=== PATIENT | female | born 1970 | race American Indian/Alaskan Native ===

== ENCOUNTER 2021-06-21 08:29 | Day surgery (SDC) | payer BC ==
--- NOTE | 2021-06-21 08:47 | EDM.PDOC ---
ED HPI GENERAL MEDICAL PROBLEM - General Chief Complaint: General Stated Complaint: coughing up blood Time Seen by Provider: 06/21/21 08:42 Source of Information: Reports: Patient History Limitations: Reports: No Limitations - History of Present Illness INITIAL COMMENTS - FREE TEXT/NARRATIVE: 51-year-old female who reports that she has been urinating frequently for about the past 3-4 days. She also reports this morning she awoke and at about 5:30 AM, she had vomiting that was rather forceful. It was not associated with any nausea but she did feel lightheaded and not well. She reports that there was multiple dry heaving and then she had about a tablespoon full of blood that was bright red and she had no further emesis but continued to fill lightheaded and dizzy. She dressed and went to work and the symptoms did not improve and, therefore, she came to the emergency department for evaluation. She has had no bowel movement today but did have a normal bowel movement yesterday with no evidence of blood. She denies any pain at present. She would rate her pain as a 0/10. She is continuing to feel somewhat lightheaded and this does seem to be worse when she stands. No fevers or chills. No dysuria. No cough. No shortness of breath. No chest pain. She is a diabetic and reports that she is taking metformin. She has not been checking her blood sugars and has not checked her blood sugar for some time. There are no other associated signs or symptoms. There are no other modifying factors. Onset: Other (Today with the throwing up blood times one. Urinating frequently for the past 4 days.) Duration: Constant Location: Reports: Other (No pain. Not applicable.) Quality: Reports: Other (Not applicable.) Improves with: Reports: Rest Worsens with: Reports: Other (Standing), Movement Context: Reports: Other (As above.) Associated Symptoms: Reports: No Other Symptoms (Except as above.) Treatments [employer]LE[employer]: Reports: Other (see below) - Related Data Allergies Allergy/AdvReac Type Severity Reaction Status Date / Time No Known Allergies Allergy Verified 06/21/21 08:47 Home Meds: Home Meds Omeprazole 40 mg PO ACBREAKFAST #30 cap.sr 06/21/21 [Rx] metFORMIN [Glucophage] 500 mg PO BIDMEALS #60 tab 06/21/21 [Rx] metFORMIN [Glucophage] 500 mg PO DAILY 06/21/21 [History] Past Medical History Endocrine/Metabolic History: Reports: Diabetes, Type II, Obesity/BMI 30+ - Past Surgical History Female Surgical History: Reports: Section Social & Family History - Tobacco Use Tobacco Use Status *Q: Unknown Ever Used Tobacco (Nonsmoker.) - Alcohol Use Alcohol Use History: Yes Alcohol Use Frequency: Rarely - Living Situation & Occupation Living situation: Reports: Occupation: Employed (Works at [employer]) ED ROS GENERAL - Review of Systems Review Of Systems: See Below Constitutional: Reports: Malaise, Weakness. Denies: Fever, Chills HEENT: Reports: Nosebleed (Has had some nosebleeds but did not have one this morning.). Denies: Throat Pain, Throat Swelling Respiratory: Denies: Shortness of Breath, Cough Cardiovascular: Denies: Chest Pain, Palpitations GI/Abdominal: Reports: Hematemesis, Vomiting. Denies: Nausea : Reports: Frequency. Denies: Dysuria, Flank Pain Musculoskeletal: Denies: Neck Pain, Back Pain Skin: Denies: Diaphoresis, Rash Neurological: Reports: Dizziness. Denies: Headache Hematologic/Lymphatic: Denies: Easy Bleeding, Easy Bruising ED EXAM, GENERAL - Physical Exam Exam: See Below Exam Limited By: No Limitations General Appearance: Alert, Mild Distress, Obese Eye Exam: Bilateral Eye: EOMI, Normal Inspection, PERRL Ears: Normal External Exam, Hearing Grossly Normal Ear Exam: Bilateral Ear: Auricle Normal Nose: Normal Inspection, Normal Mucosa, No Blood Throat/Mouth: Normal Voice, No Airway Compromise, Other (Dry mucous membranes.) Head: Atraumatic, Normocephalic Neck: Normal Inspection, Supple, Non-Tender, Full Range of Motion Respiratory/Chest: No Respiratory Distress, Lungs Clear, Normal Breath Sounds, No Accessory Muscle Use, Chest Non-Tender Cardiovascular: Normal Peripheral Pulses, No JVD, No Murmur, Tachycardia Peripheral Pulses: 2+: Radial (L), Radial (R), Dorsalis Pedis (L), Dorsalis Pedis (R) GI/Abdominal: Normal Bowel Sounds, Soft, No Mass, Tender (Mild diffuse tenderness.) Back Exam: Normal Inspection Extremities: Normal Inspection, Normal Range of Motion, Non-Tender, No Pedal Edema, Normal Capillary Refill Neurological: Alert, Oriented, CN II-XII Intact, Normal Cognition, No Motor/Sensory Deficits Psychiatric: Normal Affect Skin Exam: Warm, Dry, Intact, Normal Color, No Rash Course - Vital Signs Last Recorded V/S: Last Vital Signs Temp 36.7 C 06/21/21 10:21 Pulse 98 06/21/21 10:21 Resp 14 06/21/21 10:21 BP 147/86 H 06/21/21 10:21 Pulse Ox 93 L 06/21/21 10:21 Orthostatic Blood Pressure [ 150/92 Standing] Orthostatic Blood Pressure [ 129/91 Sitting] Orthostatic Blood Pressure [ 136/88 Supine] - Orders/Labs/Meds Orders: Active Orders 24 hr Category Date Time Status Orthostatic Vital Signs [RC] ONETIME Care 06/21/21 08:59 Active Sodium Chloride 0.9% [Saline Flush] Med 06/21/21 08:59 Active 10 ml FLUSH ASDIRECTED PRN Peripheral IV Insertion Adult [OM.PC] Routine Oth 06/21/21 08:59 Ordered Medication Orders Sodium Chloride (Sodium Chloride 0.9% 10 Ml Syringe) 10 ml FLUSH ASDIRECTED PRN PRN Reason: Keep Vein Open Last Admin: 06/21/21 09:26 Dose: 10 ml Documented by: MARTY Labs: Laboratory Tests 06/21/21 06/21/21 06/21/21 Range/Units 08:43 09:10 09:10 WBC 5.2 (3.0-10.3) x10-3/uL RBC 5.42 H (3.60-5.20) x10(6)uL Hgb 15.8 H (11.4-15.5) g/dL Hct 48.0 (34.2-48.2) % MCV 88.5 (76.7-100.5) fL MCH 29.2 (23.9-33.9) pg MCHC 32.9 (31.9-34.8) g/dL RDW 13.4 (12.3-16.5) % Plt Count 158 (151-488) x10(3)uL MPV 8.7 (7.1-12.4) fL Neut % (Auto) 64.2 (30.8-76.2) % Lymph % (Auto) 25.9 (18.4-52.1) % [place] % (Auto) 8.1 (4.4-15.7) % Eos % (Auto) 1.4 (0.6-8.1) % Baso % (Auto) 0.4 (0.2-1.5) % Neut # (Auto) 3.3 (1.5-6.3) x10-3/uL Lymph # (Auto) 1.3 (1.0-4.4) x10-3/uL [place] # (Auto) 0.4 (0.3-1.0) x10-3/uL Eos # (Auto) 0.1 (0.0-0.8) x10-3/uL Baso # (Auto) 0.0 (0.0-0.1) x10-3/uL Sodium 137 (135-145) mmol/L Potassium 3.8 (3.5-5.3) mmol/L Chloride 98 L (100-110) mmol/L Carbon Dioxide 25 (21-32) mmol/L BUN 13 (7-18) mg/dL Creatinine 1.4 H (0.55-1.02) mg/dL Est Cr Clr Drug Dosing 40.59 mL/min Estimated GFR (MDRD) 39 L (>60) BUN/Creatinine Ratio 9.3 (9-20) Glucose 467 H* (80-116) mg/dL POC Glucose 483 H* (80-116) mg/dL Calcium 9.1 (8.6-10.2) mg/dL Magnesium 1.9 (1.8-2.5) mg/dL Total Bilirubin 1.1 (0.1-1.3) mg/dL AST 41 H (5-25) IU/L ALT 35 (12-36) U/L Alkaline Phosphatase 220 H (56-112) IU/L Total Protein 8.7 H (6.0-8.0) g/dL Albumin 3.6 (3.5-5.2) g/dL Globulin 5.1 g/dL Albumin/Globulin Ratio 0.7 Urine Color (YELLOW) Urine Appearance (CLEAR) Urine pH (5.0-6.5) Ur Specific [place] (1.010-1.025) Urine Protein (NEGATIVE) mg/dL Urine Glucose (UA) (NORMAL) mg/dL Urine Ketones (NEGATIVE) mg/dL Urine Occult Blood (NEGATIVE) Urine Nitrite (NEGATIVE) Urine Bilirubin (NEGATIVE) Urine Urobilinogen (NEGATIVE) mg/dL Ur Leukocyte Esterase (NEGATIVE) Urine RBC (0-5) Urine WBC (0-5) Ur Squamous Epith Cells (NS,R,O) Urine Bacteria (NS) Blood Type Gel Antibody Screen 06/21/21 06/21/21 06/21/21 Range/Units 09:12 09:16 10:18 WBC (3.0-10.3) x10-3/uL RBC (3.60-5.20) x10(6)uL Hgb (11.4-15.5) g/dL Hct (34.2-48.2) % MCV (76.7-100.5) fL MCH (23.9-33.9) pg MCHC (31.9-34.8) g/dL RDW (12.3-16.5) % Plt Count (151-488) x10(3)uL MPV (7.1-12.4) fL Neut % (Auto) (30.8-76.2) % Lymph % (Auto) (18.4-52.1) % [place] % (Auto) (4.4-15.7) % Eos % (Auto) (0.6-8.1) % Baso % (Auto) (0.2-1.5) % Neut # (Auto) (1.5-6.3) x10-3/uL Lymph # (Auto) (1.0-4.4) x10-3/uL [place] # (Auto) (0.3-1.0) x10-3/uL Eos # (Auto) (0.0-0.8) x10-3/uL Baso # (Auto) (0.0-0.1) x10-3/uL Sodium (135-145) mmol/L Potassium (3.5-5.3) mmol/L Chloride (100-110) mmol/L Carbon Dioxide (21-32) mmol/L BUN (7-18) mg/dL Creatinine (0.55-1.02) mg/dL Est Cr Clr Drug Dosing mL/min Estimated GFR (MDRD) (>60) BUN/Creatinine Ratio (9-20) Glucose (80-116) mg/dL POC Glucose 331 H D (80-116) mg/dL Calcium (8.6-10.2) mg/dL Magnesium (1.8-2.5) mg/dL Total Bilirubin (0.1-1.3) mg/dL AST (5-25) IU/L ALT (12-36) U/L Alkaline Phosphatase (56-112) IU/L Total Protein (6.0-8.0) g/dL Albumin (3.5-5.2) g/dL Globulin g/dL Albumin/Globulin Ratio Urine Color Yellow (YELLOW) Urine Appearance Slightly cloudy (CLEAR) Urine pH 5.0 (5.0-6.5) Ur Specific [place] 1.010 (1.010-1.025) Urine Protein Negative (NEGATIVE) mg/dL Urine Glucose (UA) >1000 H (NORMAL) mg/dL Urine Ketones 15 H (NEGATIVE) mg/dL Urine Occult Blood Moderate H (NEGATIVE) Urine Nitrite Negative (NEGATIVE) Urine Bilirubin Negative (NEGATIVE) Urine Urobilinogen Normal (NEGATIVE) mg/dL Ur Leukocyte Esterase Negative (NEGATIVE) Urine RBC 0-5 (0-5) Urine WBC 0-5 (0-5) Ur Squamous Epith Cells Few H (NS,R,O) Urine Bacteria Occasional H (NS) Blood Type B POSITIVE Gel Antibody Screen Negative Meds: Medications Generic Name Dose Route Start Last Admin Trade Name Marlin PRN Reason Stop Dose Admin Sodium Chloride 10 ml 06/21/21 08:59 06/21/21 09:26 Sodium Chloride 0.9% 10 Ml Syringe FLUSH 10 ml ASDIRECTED PRN Administration Keep Vein Open Discontinued Medications Generic Name Dose Route Start Last Admin Trade Name Marlin PRN Reason Stop Dose Admin Sodium Chloride 1,000 mls @ 999 mls/hr 06/21/21 09:01 06/21/21 09:25 Normal Saline IV 06/21/21 10:01 999 mls/hr .BOLUS ONE Administration Sodium Chloride 1,000 mls @ 999 mls/hr 06/21/21 10:46 06/21/21 10:49 Normal Saline IV 06/21/21 11:46 999 mls/hr .BOLUS ONE Administration Pantoprazole Sodium 40 mg 06/21/21 10:06 06/21/21 10:10 Pantoprazole 40 Mg Vial IVPUSH 06/21/21 10:07 40 mg ONETIME ONE Administration - Re-Assessments/Exams Free Text/Narrative Re-Assessment/Exam: 06/21/21 09:45: The patient did have a rise in her pulse with standing on the orthostatic vital signs. Her blood pressure remained stable. White blood cell count is 5.2. Hemoglobin is 15.8. Platelet count is normal. Sodium is 137. Potassium is 3.8. Bicarbonate is 25. BUN is 13 and creatinine is 1.4. Glucose was 467. Magnesium is 1.9. AST is 41. Alkaline phosphatase is 210. Urinalysis had greater than 1000 glucose but was otherwise unremarkable. The patient is receiving IV normal saline as a bolus. She has had no further emesis. She is feeling improved with the IV fluids. I will also order Protonix 40 mg IV. 06/21/21 11:00: The patient's repeat glucose after 1 L normal saline as a bolus was 333. She is feeling much improved. Her repeat vital signs show a pulse in the 90s. Her blood pressures in the 150 systolic range. I will give the patient another 1 L of normal saline IV. I did call and discuss the patient's case with Dr. Rodriguez were some advice and metformin 500 mg twice daily and that the patient plan on following up with [facility] this week or next. She also needs to follow her diabetic diet and she needs to check her blood sugars at the usual daily times and keep a record of them. I also discussed patient's case with Dr. Tapia, general surgeon, and he did feel the patient needs upper endoscopy but not gently and he also felt patient could be discharged home. I discussed all this with the patient and she is in agreement with this plan. Dr. Tapia's office is going to call to the upper endoscopy. I will also place the patient on omeprazole 40 mg daily. Departure - Departure Time of Disposition: 11:40 Disposition: Home, Self-Care 01 Condition: Fair (Stable.) Clinical Impression: Dehydration Diabetes mellitus type 2, uncontrolled Qualifiers: Glycemic state: with hyperglycemia Qualified Code(s): E11.65 - Type 2 diabetes mellitus with hyperglycemia GI bleed Qualifiers: GI bleed type/associated pathology: unspecified gastrointestinal hemorrhage type Qualified Code(s): K92.2 - Gastrointestinal hemorrhage, unspecified - Discharge Information Sepsis Event Note (ED) - Evaluation Sepsis Screening Result: No Definite Risk - Focused Exam Vital Signs: Vital Signs Temp Pulse Resp BP Pulse Ox 06/21/21 10:21 36.7 C 98 14 147/86 H 93 L 06/21/21 08:39 36.6 C 112 H 18 176/107 H 96 - My Orders Last 24 Hours: My Active Orders 06/21/21 08:59 Orthostatic Vital Signs [RC] ONETIME Sodium Chloride 0.9% [Saline Flush] 10 ml FLUSH ASDIRECTED PRN Peripheral IV Insertion Adult [OM.PC] Routine - Assessment/Plan Last 24 Hours: My Active Orders 06/21/21 08:59 Orthostatic Vital Signs [RC] ONETIME Sodium Chloride 0.9% [Saline Flush] 10 ml FLUSH ASDIRECTED PRN Peripheral IV Insertion Adult [OM.PC] Routine
[2021-06-21] MEDS ORDERED: Sodium Chloride 0.9% 10 ML Syringe FLUSH PRN (08:59)
[2021-06-21] MEDS ORDERED: Sodium Chloride 0.9% 1,000 ML IV ONE ×2 (09:01→10:46)
[2021-06-21] MEDS ORDERED: Pantoprazole 40 MG Vial IVPUSH ONE (10:06)
[2021-06-21] MEDS ORDERED: Propofol 200 MG/20 ML SDV IV ONE (11:51)
[2021-06-21] MEDS ORDERED: Lactated Ringers 1,000 ML IV SCH (14:46)
--- NOTE | 2021-06-21 15:13 | PCM.PN ---
- General Info Date of Service: 06/21/21 - Review of Systems Systems Review Comment:: 51 y/o female had single episode of vomiting with hematemesis this am. Denies pain or dysphagia. PM Hx Diabetes but no previous abdominal surgery Exam shows moderate sized hernia above umbilicus but no abdominal tenderness Plan EGD Discussed with the patient. She agrees to proceed accepting risks. - Patient Data Vitals - Most Recent: Last Vital Signs Temp 98.0 F 06/21/21 10:21 Pulse 98 06/21/21 10:21 Resp 14 06/21/21 10:21 BP 147/86 H 06/21/21 10:21 Pulse Ox 93 L 06/21/21 10:21 Orthostatic Blood Pressure [ 150/92 Standing] Orthostatic Blood Pressure [ 129/91 Sitting] Orthostatic Blood Pressure [ 136/88 Supine] Weight - Most Recent: 210 lb Lab Results Last 24 Hours: Laboratory Results - last 24 hr 06/21/21 06/21/21 06/21/21 Range/Units 08:43 09:10 09:10 WBC 5.2 (3.0-10.3) x10-3/uL RBC 5.42 H (3.60-5.20) x10(6)uL Hgb 15.8 H (11.4-15.5) g/dL Hct 48.0 (34.2-48.2) % MCV 88.5 (76.7-100.5) fL MCH 29.2 (23.9-33.9) pg MCHC 32.9 (31.9-34.8) g/dL RDW 13.4 (12.3-16.5) % Plt Count 158 (151-488) x10(3)uL MPV 8.7 (7.1-12.4) fL Neut % (Auto) 64.2 (30.8-76.2) % Lymph % (Auto) 25.9 (18.4-52.1) % [place] % (Auto) 8.1 (4.4-15.7) % Eos % (Auto) 1.4 (0.6-8.1) % Baso % (Auto) 0.4 (0.2-1.5) % Neut # (Auto) 3.3 (1.5-6.3) x10-3/uL Lymph # (Auto) 1.3 (1.0-4.4) x10-3/uL [place] # (Auto) 0.4 (0.3-1.0) x10-3/uL Eos # (Auto) 0.1 (0.0-0.8) x10-3/uL Baso # (Auto) 0.0 (0.0-0.1) x10-3/uL Sodium 137 (135-145) mmol/L Potassium 3.8 (3.5-5.3) mmol/L Chloride 98 L (100-110) mmol/L Carbon Dioxide 25 (21-32) mmol/L BUN 13 (7-18) mg/dL Creatinine 1.4 H (0.55-1.02) mg/dL Est Cr Clr Drug Dosing 40.59 mL/min Estimated GFR (MDRD) 39 L (>60) BUN/Creatinine Ratio 9.3 (9-20) Glucose 467 H* (80-116) mg/dL POC Glucose 483 H* (80-116) mg/dL Calcium 9.1 (8.6-10.2) mg/dL Magnesium 1.9 (1.8-2.5) mg/dL Total Bilirubin 1.1 (0.1-1.3) mg/dL AST 41 H (5-25) IU/L ALT 35 (12-36) U/L Alkaline Phosphatase 220 H (56-112) IU/L Total Protein 8.7 H (6.0-8.0) g/dL Albumin 3.6 (3.5-5.2) g/dL Globulin 5.1 g/dL Albumin/Globulin Ratio 0.7 Urine Color (YELLOW) Urine Appearance (CLEAR) Urine pH (5.0-6.5) Ur Specific [place] (1.010-1.025) Urine Protein (NEGATIVE) mg/dL Urine Glucose (UA) (NORMAL) mg/dL Urine Ketones (NEGATIVE) mg/dL Urine Occult Blood (NEGATIVE) Urine Nitrite (NEGATIVE) Urine Bilirubin (NEGATIVE) Urine Urobilinogen (NEGATIVE) mg/dL Ur Leukocyte Esterase (NEGATIVE) Urine RBC (0-5) Urine WBC (0-5) Ur Squamous Epith Cells (NS,R,O) Urine Bacteria (NS) Blood Type Gel Antibody Screen 12/20/21 12/20/21 12/20/21 Range/Units 09:12 09:16 10:18 WBC (3.0-10.3) x10-3/uL RBC (3.60-5.20) x10(6)uL Hgb (11.4-15.5) g/dL Hct (34.2-48.2) % MCV (76.7-100.5) fL MCH (23.9-33.9) pg MCHC (31.9-34.8) g/dL RDW (12.3-16.5) % Plt Count (151-488) x10(3)uL MPV (7.1-12.4) fL Neut % (Auto) (30.8-76.2) % Lymph % (Auto) (18.4-52.1) % [place] % (Auto) (4.4-15.7) % Eos % (Auto) (0.6-8.1) % Baso % (Auto) (0.2-1.5) % Neut # (Auto) (1.5-6.3) x10-3/uL Lymph # (Auto) (1.0-4.4) x10-3/uL [place] # (Auto) (0.3-1.0) x10-3/uL Eos # (Auto) (0.0-0.8) x10-3/uL Baso # (Auto) (0.0-0.1) x10-3/uL Sodium (135-145) mmol/L Potassium (3.5-5.3) mmol/L Chloride (100-110) mmol/L Carbon Dioxide (21-32) mmol/L BUN (7-18) mg/dL Creatinine (0.55-1.02) mg/dL Est Cr Clr Drug Dosing mL/min Estimated GFR (MDRD) (>60) BUN/Creatinine Ratio (9-20) Glucose (80-116) mg/dL POC Glucose 331 H D (80-116) mg/dL Calcium (8.6-10.2) mg/dL Magnesium (1.8-2.5) mg/dL Total Bilirubin (0.1-1.3) mg/dL AST (5-25) IU/L ALT (12-36) U/L Alkaline Phosphatase (56-112) IU/L Total Protein (6.0-8.0) g/dL Albumin (3.5-5.2) g/dL Globulin g/dL Albumin/Globulin Ratio Urine Color Yellow (YELLOW) Urine Appearance Slightly cloudy (CLEAR) Urine pH 5.0 (5.0-6.5) Ur Specific [place] 1.010 (1.010-1.025) Urine Protein Negative (NEGATIVE) mg/dL Urine Glucose (UA) >1000 H (NORMAL) mg/dL Urine Ketones 15 H (NEGATIVE) mg/dL Urine Occult Blood Moderate H (NEGATIVE) Urine Nitrite Negative (NEGATIVE) Urine Bilirubin Negative (NEGATIVE) Urine Urobilinogen Normal (NEGATIVE) mg/dL Ur Leukocyte Esterase Negative (NEGATIVE) Urine RBC 0-5 (0-5) Urine WBC 0-5 (0-5) Ur Squamous Epith Cells Few H (NS,R,O) Urine Bacteria Occasional H (NS) Blood Type B POSITIVE Gel Antibody Screen Negative Med Orders - Current: Current Medications Lactated Ringer's (Ringers, Lactated) 1,000 mls @ 125 mls/hr IV ASDIRECTED ROULA Sodium Chloride (Sodium Chloride 0.9% 10 Ml Syringe) 10 ml FLUSH ASDIRECTED PRN PRN Reason: Keep Vein Open Last Admin: 06/21/21 09:26 Dose: 10 ml Documented by: Discontinued Medications Sodium Chloride (Normal Saline) 1,000 mls @ 999 mls/hr IV .BOLUS ONE Stop: 06/21/21 10:01 Last Admin: 06/21/21 09:25 Dose: 999 mls/hr Documented by: Sodium Chloride (Normal Saline) 1,000 mls @ 999 mls/hr IV .BOLUS ONE Stop: 06/21/21 11:46 Last Admin: 06/21/21 10:49 Dose: 999 mls/hr Documented by: Pantoprazole Sodium (Pantoprazole 40 Mg Vial) 40 mg IVPUSH ONETIME ONE Stop: 06/21/21 10:07 Last Admin: 06/21/21 10:10 Dose: 40 mg Documented by: - Patient Data Lab Results Last 24 hrs: Laboratory Results - last 24 hr 06/21/21 06/21/21 06/21/21 Range/Units 08:43 09:10 09:10 WBC 5.2 (3.0-10.3) x10-3/uL RBC 5.42 H (3.60-5.20) x10(6)uL Hgb 15.8 H (11.4-15.5) g/dL Hct 48.0 (34.2-48.2) % MCV 88.5 (76.7-100.5) fL MCH 29.2 (23.9-33.9) pg MCHC 32.9 (31.9-34.8) g/dL RDW 13.4 (12.3-16.5) % Plt Count 158 (151-488) x10(3)uL MPV 8.7 (7.1-12.4) fL Neut % (Auto) 64.2 (30.8-76.2) % Lymph % (Auto) 25.9 (18.4-52.1) % [place] % (Auto) 8.1 (4.4-15.7) % Eos % (Auto) 1.4 (0.6-8.1) % Baso % (Auto) 0.4 (0.2-1.5) % Neut # (Auto) 3.3 (1.5-6.3) x10-3/uL Lymph # (Auto) 1.3 (1.0-4.4) x10-3/uL [place] # (Auto) 0.4 (0.3-1.0) x10-3/uL Eos # (Auto) 0.1 (0.0-0.8) x10-3/uL Baso # (Auto) 0.0 (0.0-0.1) x10-3/uL Sodium 137 (135-145) mmol/L Potassium 3.8 (3.5-5.3) mmol/L Chloride 98 L (100-110) mmol/L Carbon Dioxide 25 (21-32) mmol/L BUN 13 (7-18) mg/dL Creatinine 1.4 H (0.55-1.02) mg/dL Est Cr Clr Drug Dosing 40.59 mL/min Estimated GFR (MDRD) 39 L (>60) BUN/Creatinine Ratio 9.3 (9-20) Glucose 467 H* (80-116) mg/dL POC Glucose 483 H* (80-116) mg/dL Calcium 9.1 (8.6-10.2) mg/dL Magnesium 1.9 (1.8-2.5) mg/dL Total Bilirubin 1.1 (0.1-1.3) mg/dL AST 41 H (5-25) IU/L ALT 35 (12-36) U/L Alkaline Phosphatase 220 H (56-112) IU/L Total Protein 8.7 H (6.0-8.0) g/dL Albumin 3.6 (3.5-5.2) g/dL Globulin 5.1 g/dL Albumin/Globulin Ratio 0.7 Urine Color (YELLOW) Urine Appearance (CLEAR) Urine pH (5.0-6.5) Ur Specific [place] (1.010-1.025) Urine Protein (NEGATIVE) mg/dL Urine Glucose (UA) (NORMAL) mg/dL Urine Ketones (NEGATIVE) mg/dL Urine Occult Blood (NEGATIVE) Urine Nitrite (NEGATIVE) Urine Bilirubin (NEGATIVE) Urine Urobilinogen (NEGATIVE) mg/dL Ur Leukocyte Esterase (NEGATIVE) Urine RBC (0-5) Urine WBC (0-5) Ur Squamous Epith Cells (NS,R,O) Urine Bacteria (NS) Blood Type Gel Antibody Screen 06/21/21 06/21/21 06/21/21 Range/Units 09:12 09:16 10:18 WBC (3.0-10.3) x10-3/uL RBC (3.60-5.20) x10(6)uL Hgb (11.4-15.5) g/dL Hct (34.2-48.2) % MCV (76.7-100.5) fL MCH (23.9-33.9) pg MCHC (31.9-34.8) g/dL RDW (12.3-16.5) % Plt Count (151-488) x10(3)uL MPV (7.1-12.4) fL Neut % (Auto) (30.8-76.2) % Lymph % (Auto) (18.4-52.1) % [place] % (Auto) (4.4-15.7) % Eos % (Auto) (0.6-8.1) % Baso % (Auto) (0.2-1.5) % Neut # (Auto) (1.5-6.3) x10-3/uL Lymph # (Auto) (1.0-4.4) x10-3/uL [place] # (Auto) (0.3-1.0) x10-3/uL Eos # (Auto) (0.0-0.8) x10-3/uL Baso # (Auto) (0.0-0.1) x10-3/uL Sodium (135-145) mmol/L Potassium (3.5-5.3) mmol/L Chloride (100-110) mmol/L Carbon Dioxide (21-32) mmol/L BUN (7-18) mg/dL Creatinine (0.55-1.02) mg/dL Est Cr Clr Drug Dosing mL/min Estimated GFR (MDRD) (>60) BUN/Creatinine Ratio (9-20) Glucose (80-116) mg/dL POC Glucose 331 H D (80-116) mg/dL Calcium (8.6-10.2) mg/dL Magnesium (1.8-2.5) mg/dL Total Bilirubin (0.1-1.3) mg/dL AST (5-25) IU/L ALT (12-36) U/L Alkaline Phosphatase (56-112) IU/L Total Protein (6.0-8.0) g/dL Albumin (3.5-5.2) g/dL Globulin g/dL Albumin/Globulin Ratio Urine Color Yellow (YELLOW) Urine Appearance Slightly cloudy (CLEAR) Urine pH 5.0 (5.0-6.5) Ur Specific [place] 1.010 (1.010-1.025) Urine Protein Negative (NEGATIVE) mg/dL Urine Glucose (UA) >1000 H (NORMAL) mg/dL Urine Ketones 15 H (NEGATIVE) mg/dL Urine Occult Blood Moderate H (NEGATIVE) Urine Nitrite Negative (NEGATIVE) Urine Bilirubin Negative (NEGATIVE) Urine Urobilinogen Normal (NEGATIVE) mg/dL Ur Leukocyte Esterase Negative (NEGATIVE) Urine RBC 0-5 (0-5) Urine WBC 0-5 (0-5) Ur Squamous Epith Cells Few H (NS,R,O) Urine Bacteria Occasional H (NS) Blood Type B POSITIVE Gel Antibody Screen Negative Result Diagrams: 06/21/21 09:10 06/21/21 09:10 Sepsis Event Note - Evaluation Sepsis Screening Result: No Definite Risk - Focused Exam Vital Signs: Vital Signs Temp Pulse Resp BP Pulse Ox 06/21/21 10:21 98.0 F 98 14 147/86 H 93 L 06/21/21 08:39 97.8 F 112 H 18 176/107 H 96 - Problem List Review Problem List Initiated/Reviewed/Updated: Yes - My Orders Last 24 Hours: My Active Orders 06/21/21 14:46 Lactated Ringers [Ringers, Lactated] 1,000 ml IV ASDIRECTED - Assessment Assessment:: Hematemesis - Plan Plan:: EGD
--- NOTE | 2021-06-21 15:42 | PCM.OPNOTE ---
- General Post-Op/Procedure Note Date of Surgery/Procedure: 06/21/21 Operative Procedure(s): EGD with Biopsy Findings: Diffuse gastritis throughout gastric fundus and body No ulceration seen Duodenum and Esophagus appear normal Pre Op Diagnosis: Hematemesis Post-Op Diagnosis: Gastritis Anesthesia Technique: MAC Primary Surgeon: Melchor Villa Pathology: Biopsies of gastric antrum and body EBL in mLs: 3 Complications: None Condition: Good
--- NOTE | 2021-06-21 16:27 | OR ---
DATE OF OPERATION: 06/21/2021 SURGEON: Melchor Villa MD PREOPERATIVE DIAGNOSIS: Hematemesis. POSTOPERATIVE DIAGNOSIS: Gastritis. OPERATION PERFORMED: Esophagogastroduodenoscopy with biopsy. INDICATIONS FOR SURGERY: This 51-year-old female presented to the emergency room this morning with symptoms of vomiting in which she noted bright red blood. She had not had similar symptoms in the past. She denies abdominal pain. Even though her hemoglobin is stable, a diagnostic upper endoscopy to determine the source of her upper GI bleed is planned. FINDINGS: The mucosa of the patient's stomach including the fundus and body and to a lesser extent the antrum shows diffuse gastritis with multiple punctate erythematous areas. I do not see any evidence of erosion or signs of ulceration at this time. No fresh blood is seen in the stomach. The patient's esophagus and duodenum to the fourth portion appear normal. PROCEDURE: The patient was taken to the procedure room. She was given intravenous sedation and with her in the left lateral decubitus position, the Olympus gastroscope was advanced through a mouth guard into the oral cavity. Under direct visualization, the scope was carefully advanced down through the oropharynx and then on down through the esophagus, stomach, and into the duodenum where examination to the fourth portion was performed. Careful examination of the duodenum was carried out and the scope was withdrawn back into the stomach, where full examination including retroflexed examination of the fundus was performed. Random biopsies of the antrum and gastric body were taken. The GE junction and esophagus were then carefully re-examined as the scope was withdrawn and the scope was removed. The patient was then taken from the procedure room in satisfactory condition. ESTIMATED BLOOD LOSS: 3 mL. COMPLICATIONS: None. PROGNOSIS: Good. /[id number] [place]
== END 2021-06-21 16:35 | disposition home or self-care (01) ==
LOC: FB.ED 08:29 → FB.SDS 11:50
PROVIDERS: ATTEND Surgery
DX: K29.30 Chronic superficial gastritis without bleeding (principal); B96.81 Helicobacter pylori [H. pylori] as the cause of diseases classified elsewhere; E11.9 Type 2 diabetes mellitus without complications; E66.9 Obesity, unspecified; Z79.84 Long term (current) use of oral hypoglycemic drugs; Z79.899 Other long term (current) drug therapy; Z68.36 Body mass index [BMI] 36.0-36.9, adult
CPT/HCPCS: 00731-QZ; 36415; 80053; 81001; 82947; 83735; 85025; 86850; 86900; 86901; 88305; 88342; 96374; 99285-25; C9113; J2704; J7030; J7120

== ENCOUNTER → 2022-04-22 | Day surgery (SDC) | payer BC ==
[~2022-04-22] MED LIST: Bupivacaine 0.5% 50 ML MDV INJECT ONE; Dexamethasone 4 MG/ML 5 ML MDV IVPUSH ONE; HYDROmorphone 2 MG/ML SDV IV ONE; Ketorolac 30 MG/ML SDV IVPUSH ONE; Lactated Ringers 1,000 ML IV SCH; Lidocaine 1% with EPINEPHrine 1:100,000 20 ML MDV INJECT ONE; Midazolam 1 MG/ML 2 ML SDV IV ONE; Propofol 200 MG/20 ML SDV IV ONE; Rocuronium 100 MG/10 ML MDV IV ONE; Rocuronium 50 MG/5 ML Vial IVPUSH ONE; Sodium Chloride 0.9% 10 ML Syringe FLUSH PRN; Succinylcholine 200 MG/10 ML MDV IV ONE; ceFAZolin 2 GM in Premix Bag 1 BAG IV ONE; diphenhydrAMINE 50 MG/ML SDV IVPUSH ONE; fentaNYL 100 MCG/2 ML SDV IV ONE
== END ==
LOC: FB.SDS 07:22
PROVIDERS: ATTEND Surgery
DX: K43.6 Other and unspecified ventral hernia with obstruction, without gangrene (principal); E11.9 Type 2 diabetes mellitus without complications; Z79.899 Other long term (current) drug therapy; Z79.4 Long term (current) use of insulin; Z79.84 Long term (current) use of oral hypoglycemic drugs
CPT/HCPCS: 49255; 49561; 82947; J0330; J0690; J1100; J1170; J1200; J1885; J2250; J2704; J3010; J3490; J7120; 88302